=== PATIENT | female | born 1950 | race Caucasian/White ===

== ENCOUNTER 2023-10-27 10:56 | Outpatient (CLI) | payer MEDICARE, SELFPAY ==
[2023-10-27 12:04] LABS: Anion Gap 7 mmol/L (8-16); Blood Urea Nitrogen 16 mg/dL (7-17); Carbon Dioxide 28 mmol/L (22-30); Chloride 104 mmol/L (98-107); Estimated Glomerular Filt Rate > 60; Glucose 248 mg/dL (65-110); Potassium 4.2 mmol/L (3.4-5.0); Sodium 139 mmol/L (137-145)
== END 2023-10-27 10:57 | disposition home or self-care (01) ==
LOC: ANHSURGERY 11:29
PROVIDERS: Anesthesiology; PCP Internal Medicine; Visit Provider Obstetrics & Gynecology
DX: Z01.818 Encounter for other preprocedural examination (principal); E11.9 Type 2 diabetes mellitus without complications
CPT/HCPCS: 36415; 80048

== ENCOUNTER 2023-10-30 04:02 | Day surgery (SDC) | payer MEDICARE, SELFPAY ==
[2023-10-26 13:43] VITALS: BMI 29.8
--- NOTE | 2023-10-26 13:56 | PC.NURSE ---
Report to the Outpatient Waiting Room, entrance under the green pavilion located off [facility], at time _0815_ on date _10/30/23_. Planned Procedure Time: _1015_. Time changes happen often and if your time is changed the preop area will call you the afternoon before. - You and your visitor will be asked to self-screen and do not enter if you have any COVID symptoms. - A mask is optional within the hospital at this time. Patients may have clear liquids (water, carbonated beverages, clear teas, apple juice) until 3 hours prior to surgery (0715 AM) with a maximum of 20 ounces. - No food from midnight until time of surgery Take the following medications with a SIP of water the morning of surgery: _CARVEDILOL, LEVOTHYROXINE_ DO NOT STOP ANY OF YOUR OTHER PRESCRIPTION MEDICATIONS PRIOR TO SURGERY ?EXCEPT THE FOLLOWING Medications to discontinue __ASPIRIN PER DR. RHODES, Date to take last dose CALL FOR INSTRUCTIONS_ Please no make-up, nail english, hairspray, perfume, deodorant, or body powder the day of surgery. No jewelry (including any body piercings) or valuables the day of surgery, leave them at home. Please take a shower or bath the night before, or the morning of, surgery with an antibacterial soap. Wear comfortable, loose fitting clothing. - Jewelry must be removed prior to entering the operating room. Rings and piercings that are not removed may be cut off. - The hospital will not accept responsibility for valuables. - Please leave all valuables, including medications, at home the day of surgery. If you are going home after surgery, a licensed bull driver must drive you home. - NO public transportation without another adult if you receive anesthesia. - We recommend that an adult stay with you for 24 hours following discharge. - We also recommend that you do not drive, make important decision, drink alcoholic beverages, or take any drugs that were not prescribed by your health care provider for at least 24 hours after your discharge time. Follow any additional instructions given to you from your surgeon. If you or anyone in your household have experienced Covid symptoms in the past week, please notify your surgeon or the nurse liaison at the phone number below for possible testing. Telephone instructions given to _PATIENT_and asked if any additional questions and then verbalized understanding. Patient advised to call surgeon office or pre surgery nurse liaison [phone] if any additional questions.
--- NOTE | 2023-10-27 16:20 | P.HP_ITS ---
H&P: HPI History of Present Illness Date/Time: 10/27/23 16:20 Chief Complaint: postmenopausal bleeding Narrative: 72-year-old female with postmenopausal bleeding. She underwent ultrasound which showed 8mm thickness on her ultrasound imaging. She will undergo hysteroscopy dilatation curettage. Risks and benefits reviewed including min exclusive of , aspiration pneumonia, bleeding, transfusion, perforation injury to bowel, bladder, ureters, or other internal organs with the need for open laparotomy. She received the [employer] handout entitled hysteroscopy as well as the dilatation and curettage handout. She had all questions answered. She asked to proceed [facility] Social History Social History Smoking status: Never smoker Second hand tobacco smoke exposure: No Alcohol intake: never Substance use: never Living arrangements: with family Spiritual care concerns: No Meds Home Medications and Allergies Home Medications Medication Instructions Recorded Confirmed Type alprazolam 0.25 mg tablet 0.25 mg HS PRN Anxiety 10/26/23 10/26/23 History aspirin 81 mg tablet,delayed 81 mg PO DAILY 10/26/23 10/26/23 History release carvedilol 25 mg tablet 25 mg BID 10/26/23 10/26/23 History empagliflozin 12.5 mg-metformin ER 2 tablet PO DAILY 10/26/23 10/26/23 History 1,000 mg tablet,extended rel 24 hr (Synjardy XR) levothyroxine 50 mcg tablet 50 mcg DAILY 10/26/23 10/26/23 History paroxetine HCl 20 mg tablet 20 mg PO DAILY 10/26/23 10/26/23 History rosuvastatin 10 mg tablet 10 mg DAILY 10/26/23 10/26/23 History Allergies Allergy/AdvReac Type Severity Reaction Status Date / Time No Known Allergies Allergy Verified 10/26/23 13:36 Exam Const: General: cooperative, healthy appearing and comfortable Nutritional Appearance: overweight Orientation/consciousness: oriented to person, oriented to place and oriented to time HENMT: Head: normal to inspection Resp: Effort & Inspection: normal respiratory effort Cardio: Rate: regular rate Rhythm: regular rhythm Heart sounds: S1 normal heart sound present and S2 normal heart sound present GI: Inspection: normal to inspection : External Female Exam: normal external appearance Speculum Exam - Vagina: normal appearance of the vagina Speculum Exam - Cervix: normal appearance of the cervix Bimanual exam- vagina & uterus: enlarged Bimanual Exam- Adnexa, other: normal adnexae Assessment and Plan Assessment and plan (1) Postmenopausal bleeding: Code(s): N95.0 - Postmenopausal bleeding Status: Acute Plan hysteroscopy/dilatation and curettage
--- NOTE | 2023-10-30 06:18 | WPDHPUPDATE1 ---
History and Physical Update Update Date/Time: 10/30/23 06:18 History and Physical has been reviewed, including an updated exam of the patient. There are NO changes in the patient's condition. Risks, benefits, and alternatives have been discussed and questions answered. Patient agrees to proceed with procedure.
[2023-10-30 08:32] VITALS: BP 131/63; PULSE 68; RESP 18; TEMP 36.3; O2SAT 98
[2023-10-30] MEDS: LACTATED RINGERS 1,000 ML 30 ML IV CONT (08:45)
[2023-10-30] MEDS: ACETAMINOPHEN 500 MG TABLET 1000 MG PO (08:47)
--- NOTE | 2023-10-30 08:58 | P.PNAN_ITS ---
Anes - Initial Pre Proc Eval Procedure: Operation Date: 10/30/23 10:15 Proposed Procedures p Hysteroscopy, Dilation and Curettage - Yariel Cantu MD Date/Time: 10/30/23 08:58 Surgeon: Yariel Cantu MD Pre Op Diagnosis: post menopausal bleeding Patient Data Age: 72 Gender: F Height: 1.6 m Weight: 76 kg Last Vital Signs Temp 36.3 C L 10/30/23 08:32 Pulse 68 10/30/23 08:32 Resp 18 10/30/23 08:32 BP 131/63 10/30/23 08:32 Pulse Ox 98 10/30/23 08:32 O2 Del Method Room Air 10/30/23 08:32 Allergies Allergy/AdvReac Type Severity Reaction Status Date / Time No Known Allergies Allergy Verified 10/30/23 08:33 Home Medications Medication Instructions Recorded Confirmed Type alprazolam 0.25 mg tablet 0.25 mg HS PRN Anxiety 10/26/23 10/26/23 History aspirin 81 mg tablet,delayed 81 mg PO DAILY 10/26/23 10/26/23 History release carvedilol 25 mg tablet 25 mg BID 10/26/23 10/26/23 History empagliflozin 12.5 mg-metformin ER 2 tablet PO DAILY 10/26/23 10/26/23 History 1,000 mg tablet,extended rel 24 hr (Synjardy XR) levothyroxine 50 mcg tablet 50 mcg DAILY 10/26/23 10/26/23 History paroxetine HCl 20 mg tablet 20 mg PO DAILY 10/26/23 10/26/23 History rosuvastatin 10 mg tablet 10 mg DAILY 10/26/23 10/26/23 History hydrocodone 5 mg-acetaminophen 325 1 tablet PO Q4H PRN pain #14 tabs 10/30/23 Rx mg tablet Patient hx anesthesia problems: none Family hx anesthesia problems: none Results Review: All pre-operative results and documents have been reviewed as part of the pre- operative evaluation. [facility] Social History Social History Smoking status: Never smoker Second hand tobacco smoke exposure: No Alcohol intake: never Substance use: never Living arrangements: with family Spiritual care concerns: No Anes - Eval Final PreProcedure Day of Procedure 10/30/23 08:58 Patient weight: overweight Heart: regular rate and rhythm Lungs: clear to auscultation Airway: Mallampati scale class III Neurological: alert and oriented Last oral intake: >/= 8 hours ASA classification: III Emergent: no Anesthetic plan: proceed Anesthesia type and monitoring: general GIVS and standard monitoring Results Review: All pre-operative results and documents have been reviewed as part of the pre- operative evaluation. Informed Consent: The patient's anesthetic plan and its attendant risks and benefits were discussed with the patient/family/POA. Questions were solicited and answers provided to the satisfaction of the patient/family/POA.
[2023-10-30 09:16] LABS: Hematocrit 39.5 % (37.0-47.0); Hemoglobin 13.2 g/dL (12.0-15.0)
[2023-10-30 09:32] LABS: Glucose Point of Care 118 mg/dl (65-105)
[2023-10-30] MEDS: LIDOCAINE HCL 1% LOCAL INJ 10 ML VIAL INFILTRATE (10:08)
--- NOTE | 2023-10-30 10:11 | W.PM.PROC2 ---
Procedure Note - Detailed Date of Procedure 10/30/23 Pre-op Diagnosis post menopausal bleeding Post-op Diagnosis Same (Postmenopausal bleeding with uterine polyp) Procedure Performed hysteroscopy/ polypectomy/dilatation Surgeon Yariel Cantu MD Anesthesia MAC and Local Indications 72-year-old female and postmenopausal bleeding Findings the very small uterine polyp. Uterus sounded to 8cm. Normal-appearing benign endometrium otherwise. Description of Procedure Patient was prepped draped in the normal sterile fashion placed in dorsal position. Under excellent IV sedation weighted speculum was placed in posterior fornix of vagina. Anterior lip of the cervix grasped with single-tooth tenaculum. 2.5cc 1% xylocaine anesthesia placed at 2, 4, 8, 10:00 a.m. of the cervix. Uterus sounded 8cm. Serial dilatation with fragmented dilators performed followed by passage of the Sommer hysteroscope using normal saline with a visualizing medium. A small polyp was seen at the fundus and using the small of rotating instrument this was removed in toto uterus was scraped over the entire 360? until a good grating sound was heard. When no further instruments could remove the instruments were withdrawn the patient went to recovery in satisfactory condition. All sponge, needle, instrument counts were correct. There were no immediate complications Estimated Blood Loss 5 Drains No Packing No Pathology Yes Complications No immediate complications Condition Stable Disposition PACU
[2023-10-30 10:13] VITALS: BP 99/55; PULSE 56; RESP 14; O2SAT 96
[2023-10-30 10:21] LABS: Glucose Point of Care 110 mg/dl (65-105)
[2023-10-30 10:35] VITALS: BP 124/65; PULSE 60; RESP 20
[2023-10-30 11:05] VITALS: BP 110/54; PULSE 63; RESP 16
[2023-10-30 11:15] VITALS: BP 118/60; PULSE 68; RESP 18
== END 2023-10-30 11:23 | disposition home or self-care (01) ==
PROVIDERS: PCP Internal Medicine; Visit Provider Obstetrics & Gynecology
PROC: 0U5B8ZZ Destruction of Endometrium, Via Natural or Artificial Opening Endoscopic (ICD-10-PCS; CPT 58563; principal; 2023-10-30 10:15)
DX: C55 Malignant neoplasm of uterus, part unspecified (principal)
CPT/HCPCS: 58558; 36415; 80048; 82948; 85014; 85018; 88305; 88342; A9270; J3010; J7120

== ENCOUNTER 2023-11-10 07:32 | Outpatient (CLI) | payer MEDICARE, SELFPAY ==
--- NOTE | ~2023-11-10 | CT_ITS ---
EXAMINATION: CT abdomen pelvis w con DATE: 11/10/2023 08:06 INDICATION: Uterine cancer TECHNIQUE: Computed tomography (CT) of the abdomen and pelvis was performed with 100 cc Omnipaque 350 intravenous contrast. The dose-length product was 636.94 mGy-cm. Automated exposure control and iter ative reconstruction technique were employed. COMPARISON: None. FINDINGS: 3 mm left lower lobe nodule. Heart size normal. No significant pleural or pericardial effus ion. Mild atherosclerosis. No aneurysm. No lymphadenopathy. Fatty infiltration of the liver. The spleen, pancreas, adrenal glands and kidneys are unremarkable. G allbladder is present. Colonic diverticulosis without evidence for diverticulitis. No abnormal pelvic masses or fluid collections. There is a superior endplate compression fracture of T12, likely chroni c. IMPRESSION: 1. Left lower lobe nodule measuring 3 mm, likely benign. Recommend follow-up low dose CT chest in 12 months. 2: No evidence for metastatic disease. 3: No acute abdominal abnormality. Reviewed, dictated and finalized at location [facility]. [facility] IMPRESSION: 1. Left lower lobe nodule measuring 3 mm, likely benign. Recommend follow-up lo w dose CT chest in 12 months. 2: No evidence for metastatic disease. 3: No acute abdominal abnormality.
== END 2023-11-10 07:33 | disposition home or self-care (01) ==
PROVIDERS: PCP Internal Medicine; Visit Provider Obstetrics & Gynecology
DX: R91.1 Solitary pulmonary nodule (principal); C55 Malignant neoplasm of uterus, part unspecified
CPT/HCPCS: 74177; Q9967